=== PATIENT | female | born 1990 | race Caucasian/White ===

== ENCOUNTER 2018-10-12 22:53 | Emergency (ER) | payer BC, OTHER ==
[2018-10-12 22:56] VITALS: BP 120/84; PULSE 93; TEMP 99.1; BMI 21.2
--- NOTE | 2018-10-13 05:00 | PDOC ---
Documentation entered by Anjum Wolfe SCRIBE, acting as scribe for Alonso Oconnor MD. Alonso Oconnor MD: This documentation has been prepared by the Aiden larson Aiswarya, SCRIBE, under my direction and personally reviewed by me in its entirety. I confirm that the documentation accurately reflects all work, treatment, procedures, and medical decision making performed by me. History of Present Illness - General Chief Complaint: Lightheaded Stated Complaint: DIZZINESS Time Seen by Provider: 10/12/18 22:56 History Source: Patient Exam Limitations: No Limitations - History of Present Illness Initial Comments: 10/12/18 23:28 The patient is a 28 year old female, with no significant PMH, who presents to the emergency department with lightheadedness for 2 days. The patient state she was at a graduation today when she felt increasingly dizzy, generalized weakness , fatigue and warmth. She reports a temperature of 99.9 at home today and came to the ER for further evaluation. She also mentions her blood sugar was low today. The patient denies chest pain, shortness of breath. Denies hills, nausea , vomit, diarrhea and constipation.Denies dysuria, frequency, urgency and hematuria. Allergies: NKDA Past surgical history: None reported Social history: Drinks alcohol occasionally PCP: None reported Past History - Past Medical History Allergies/Adverse Reactions: Allergies Allergy/AdvReac Type Severity Reaction Status Date / Time No Known Allergies Allergy Verified 10/12/18 22:54 Home Medications: Ambulatory Orders NK [No Known Home Medication] 10/12/18 CVA: No COPD: No - Suicide/Smoking/Psychosocial Hx Smoking History: Never smoked Hx Alcohol Use: Yes (OCASIONAL) Drug/Substance Use Hx: No Review of Systems - Review of Systems Able to Perform ROS?: Yes Comments:: 10/12/18 23:28 GENERAL/CONSTITUTIONAL:+Fever. No weakness. HEAD, EYES, EARS, NOSE AND THROAT: No change in vision. No ear pain or discharge. No sore throat. CARDIOVASCULAR: No chest pain or shortness of breath. RESPIRATORY: No cough, wheezing, or hemoptysis. GASTROINTESTINAL: No nausea, vomiting, diarrhea or constipation. GENITOURINARY: No dysuria, frequency, or change in urination. MUSCULOSKELETAL: No joint or muscle swelling or pain. No neck or back pain. SKIN: No rash NEUROLOGIC:+Lightheadedness. No vertigo, loss of consciousness, or change in strength/sensation. ENDOCRINE: No increased thirst. No abnormal weight change. HEMATOLOGIC/LYMPHATIC: No anemia, easy bleeding, or history of blood clots. ALLERGIC/IMMUNOLOGIC: No hives or skin allergy. *Physical Exam - Vital Signs Last Vital Signs Temp Pulse Resp BP Pulse Ox 99.1 F 93 H 18 120/84 100 10/12/18 22:54 10/12/18 22:54 10/12/18 22:54 10/12/18 22:54 10/12/18 22:54 - Physical Exam Comments: 10/12/18 23:29 GENERAL: Awake, alert, and fully oriented, in no acute distress HEAD: No signs of trauma EYES: PERRLA, EOMI, sclera anicteric, conjunctiva clear ENT: Auricles normal inspection, hearing grossly normal, nares patent, oropharynx clear without exudates. Moist mucosa NECK: Normal ROM, supple, no lymphadenopathy, JVD, or masses LUNGS: Breath sounds equal, clear to auscultation bilaterally. No wheezes, and no crackles HEART: Regular rate and rhythm, normal S1 and S2, no murmurs, rubs or gallops NEUROLOGICAL: Cranial nerves II through XII grossly intact. Normal speech. SKIN: Warm, Dry, normal turgor, no rashes or lesions noted. Medical Decision Making - Medical Decision Making 10/13/18 05:00 malaise, low grade fever symptomatic mgmt maintain oral hydration *DC/Admit/Observation/Transfer Diagnosis at time of Disposition: Malaise - Discharge Dispostion Disposition: HOME Condition at time of disposition: Stable - Referrals - Patient Instructions Additional Instructions: Please call if any new symptoms develop: [phone] Drink lots of gatorade. Tyelnol and motrin if you feel feverish. - Post Discharge Activity Forms/Work/School Notes: Back to Work
== END 2018-10-12 23:25 | disposition home or self-care (01) ==
LOC: FER 22:53
DX: R53.81 Other malaise (principal)
CPT/HCPCS: 99281-25

== ENCOUNTER 2021-09-17 08:21 | Emergency (ER) | payer BC, OTHER ==
[2021-09-17 08:27] VITALS: BP 106/61; PULSE 61; TEMP 98.7; BMI 23.3
[2021-09-17] MEDS ORDERED: FAMOTIDINE 20 MG/50 ML IVPB 20 MG/50 ML MG IVPB ONE ×2 (08:54→09:24)
[2021-09-17] MEDS ORDERED: ACETAMINOPHEN 1000 MG/100 ML BAG IVPB ONE (08:54)
[2021-09-17] MEDS ORDERED: SODIUM CHLORIDE 0.9% 1000 ML INFUS.BAG IV ONE (08:54)
[2021-09-17] MEDS ORDERED: ACETAMINOPHEN INJECTION 100 ML IVPB ONE (08:58)
[2021-09-17 09:40] LABS: HEMATOCRIT 37.7 % (32.4-45.2); HEMOGLOBIN 13.1 G/dL (10.7-15.3); MCH 31.7 pg (25.7-33.7); MCHC 34.7 g/dl (32.0-36.0); MEAN CELL VOLUME 91.4 fl (80-96); MEAN PLT VOLUME 7.7 fl (7.5-11.1); PLATELET COUNT 218.6 10^3/uL (134-434); RBC 4.13 10^6/uL (3.60-5.2); WHITE BLOOD COUNT 6.4 10^3/uL (4.0-10.8)
[2021-09-17 09:57] LABS: ALBUMIN 3.8 g/dl (3.4-5.0); BILIRUBIN,TOTAL 0.8 mg/dl (0.2-1); CALCIUM 9.1 mg/dl (8.5-10); CREATININE 0.6 mg/dl (0.55-1.3); TOT PROT 6.8 g/dl (6.4-8.2)
[2021-09-17 10:01] LABS: HCG,QUALITATIVE URINE Negative
[2021-09-17 10:46] LABS: EPITHELIAL CELLS FEW /hpf
[2021-09-17 10:49] LABS: PLATELET ESTIMATE ADEQUATE
== END 2021-09-17 13:47 | disposition home or self-care (01) ==
LOC: FER 08:21
PROC: 3E033GC Introduction of Other Therapeutic Substance into Peripheral Vein, Percutaneous Approach (ICD-10-PCS; principal; 2021-09-17)
DX: R10.30 Lower abdominal pain, unspecified (principal); R19.7 Diarrhea, unspecified
CPT/HCPCS: 36415; 74177-TC; 80053; 81003; 81015; 84703; 85025; 99285-25; Q9967